=== PATIENT | male | born 1990 | race American Indian/Alaskan Native ===

== ENCOUNTER 2017-05-13 13:36 | Emergency (ER) | payer SELFPAY ==
[2017-05-13 14:07] VITALS: BP 137/68
[2017-05-13 16:38] LABS: Bilirubin,Urine NEG (Negative); Blood,Urine NEG (Negative); Ketones,Urine NEG (Negative); Leukocyte Esterase,Urine NEG (Negative); Mucus,Urine 2+ /HPF; Nitrite,Urine NEG (Negative); Protein,Urine <15 mg/dL mg/dL (Negative)
--- NOTE | 2017-05-13 17:18 | Emergency Department Report ---
ED Male HPI - General Chief complaint: Urogenital-Male Stated complaint: PENIS AND BODY PROBLEMS Time Seen by Provider: 05/13/17 15:55 Source: patient Mode of arrival: Ambulatory Limitations: No Limitations - History of Present Illness Initial comments: Patient is a 26 y/o male who presents due to penile lesions x 2 months and body aches x 6 months. Patient denies any dysuria, heamturia or frequency. Paient denies any fever or chills. Patient denies any nausea, vomiting or diarrhea. Patient denies any pain from the penile lesions. MD Complaint: other (penile resions) Onset/Timin -: month(s) Location: penis Radiation: none Severity: mild Consistency: constant Improves with: none Worsens with: none other (bodyaches) - Related Data Previous Rx's Medication Instructions Recorded Last Taken Type Clotrimazole 1% [Lotrimin] 1 applic TP BID #1 tube 05/13/17 Unknown Rx Allergies Allergy/AdvReac Type Severity Reaction Status Date / Time No Known Allergies Allergy Unverified 05/13/17 14:01 ED Review of Systems ROS: Stated complaint: PENIS AND BODY PROBLEMS Other details as noted in HPI Comment: All other systems reviewed and negative Constitutional: no symptoms reported. denies: chills, diaphoresis, fever, malaise, weakness Gastrointestinal: denies: abdominal pain, nausea, vomiting, diarrhea Genitourinary: other (penile lesions/rash). denies: urgency, dysuria, frequency , hematuria, discharge, testicular pain, testicular mass Musculoskeletal: denies: back pain, joint swelling Skin: rash (penile) ED Past Medical Hx - Past Medical History Previous Medical History?: No - Surgical History Past Surgical History?: No - Social History Smoking Status: Current Some Day Smoker Substance Use Type: Marijuana - Medications Home Medications: Home Medications Medication Instructions Recorded Confirmed Last Taken Type Clotrimazole 1% [Lotrimin] 1 applic TP BID #1 tube 05/13/17 Unknown Rx ED Physical Exam - General Limitations: No Limitations General appearance: alert, in no apparent distress - Head Head exam: Present: atraumatic, normocephalic, normal inspection - Eye Eye exam: Present: normal appearance, PERRL, EOMI Pupils: Present: normal accommodation - exam: Absent: testicular tenderness, urethral discharge, scrotal swelling, vertical testicular lie, circumcision External exam: Present: lesions. Absent: erythema, swelling, lacerations, ecchymosis, bleeding (papular rash on the shaft of the penis. there is a 5 mm verrucons surface on the proximal anterior penis) ED Course Vital Signs 05/13/17 14:02 Temperature 98.2 F Pulse Rate 58 L Respiratory 18 Rate Blood Pressure 137/68 ED Medical Decision Making - Lab Data Lab Results 05/13/17 Range/Units 16:00 Urine Color Yellow (Yellow) Urine Turbidity Clear (Clear) Urine pH 5.0 (5.0-7.0) Ur Specific [place] 1.025 (1.003-1.030) Urine Protein <15 mg/dl (Negative) mg/dL Urine Glucose (UA) Neg (Negative) mg/dL Urine Ketones Neg (Negative) mg/dL Urine Blood Neg (Negative) Urine Nitrite Neg (Negative) Urine Bilirubin Neg (Negative) Urine Urobilinogen 2.0 (<2.0) mg/dL Ur Leukocyte Esterase Neg (Negative) Urine WBC (Auto) 1.0 (0.0-6.0) /HPF Urine RBC (Auto) 2.0 (0.0-6.0) /HPF U Epithel Cells (Auto) < 1.0 (0-13.0) /HPF Urine Mucus 2+ /HPF - Medical Decision Making Patient was in no acute distress, patient had papular rash on the shaft of his penis, there was a 5 mm flesh-colored verrucons surface. Patient was prescribed Lotrimin for the papular rash and was told to follow-up with the provided urologist for further treatment for his genital warts. - Differential Diagnosis tinea cruris, genital worts, genital herpes Critical care attestation.: If time is entered above; I have spent that time in minutes in the direct care of this critically ill patient, excluding procedure time. ED Disposition Clinical Impression: Penile lesion, Penile rash Disposition: - TO HOME OR SELFCARE Is pt being admited?: No Does the pt Need Aspirin: No Condition: Good Instructions: Julian Jaffe (ED) Additional Instructions: Apply lotrimin cream to penile rash twice for 4 2 weeks. Follow up with the provided urologist for the wart looking lesion for a skin biopsy. Prescriptions: Clotrimazole 1% [Lotrimin] 1 applic TP BID #1 tube Referrals: PRIMARY CARE, [Primary Care Provider] - 3-5 Days SHELLI DAY MD [Staff Physician] - 3-5 Days Time of Disposition: 17:18
== END 2017-05-13 17:32 | disposition home or self-care (01) ==
LOC: ED 13:36
DX: L98.8 Other specified disorders of the skin and subcutaneous tissue (principal); F17.210 Nicotine dependence, cigarettes, uncomplicated; F12.10 Cannabis abuse, uncomplicated
CPT/HCPCS: 81001; 99283